=== PATIENT | female | born 1940 | race Caucasian/White ===

== ENCOUNTER → 2021-02-14 | Outpatient (CLI) | payer OTHER ==
[~2021-02-14] MED LIST: K-DUR TAB 20 M20 MEQ PO
== END ==
LOC: RAD 13:23
DX: R06.02 Shortness of breath (principal)
CPT/HCPCS: 71046

== ENCOUNTER → 2021-02-20 | Outpatient (CLI) | payer OTHER | LOC: ECHO 11:22 | DX: R06.02 Shortness of breath (principal) | CPT/HCPCS: ECHO; 93306 ==